=== PATIENT | female | born 2000 | race African-American/Black ===

== ENCOUNTER 2022-06-28 23:46 | Emergency (ER) | payer OTHER ==
[~2022-06-28] VITALS: Ht 160 cm; Wt 74.8 kg
[2022-06-29] MEDS ORDERED: KETOROLAC TROMETHAMINE 60 MG INJ IM ONE ×2 (02:00→02:06)
[2022-06-29 02:24] LABS: HEMATOCRIT 36.4 % (31.2-41.9); MEAN CORPUSCULAR HEMOGLOBIN 26.7 uug (24.7-32.8); MEAN CORPUSCULAR VOLUME 82.1 fL (75.5-95.3); PLATELET COUNT (AUTO) 308 K/uL (179-408)
--- NOTE | 2022-06-29 02:32 | NUR ---
Toradol 60mg IM not given. Patient refused. Per patient, she received Toradol yesterday at [facility] and became itchy. ER MD aware
[2022-06-29 02:45] LABS: MAGNESIUM 1.7 mg/dL (1.8-2.4); POTASSIUM 4.3 mmol/L (3.5-5.1)
--- NOTE | 2022-06-29 02:54 | NUR ---
Urine sample sent to lab
[2022-06-29 03:05] LABS: *BILIRUBIN,URIN NEGATIVE (NEGATIVE); *BLOOD, URINE NEGATIVE (NEGATIVE); *CLARITY,URINE CLEAR (CLEAR); *COLOR,URINE YELLOW (YELLOW); *KETONES,URINE NEGATIVE (NEGATIVE); *UROBILINOGEN,URINE 0.2 E.U./dl (NORMAL); LEUKOCYTE ESTERASE ,URINE NEGATIVE (NEGATIVE); NITRITE, URINE NEGATIVE (NEGATIVE); UGLUCOSE NEGATIVE (NEGATIVE)
[2022-06-29] MEDS ORDERED: HYDROCODONE/APAP 10-325 MG TABLET PO ONE (03:15)
[2022-06-29] MEDS ORDERED: IBUP-1957 PO (03:15)
[2022-06-29] MEDS ORDERED: HYDR-3980 PO (03:15)
--- NOTE | 2022-06-29 03:15 | NUR ---
Given verbal order per Dr. Ball to administer Motrin 600mg PO for pain.
[2022-06-29] MEDS ORDERED: IBUPROFEN 600 MG TABLET ONE (03:16)
[2022-06-29] MEDS ORDERED: IBUPROFEN 600 MG TABLET PO ONE (03:30)
--- NOTE | 2022-06-29 03:30 | NUR ---
Patient discharged to home in stable condition. Written and verbal after care instructions given. Patient verbalizes understanding of instructions. Stressed follow up or return to ER for worsening s/s.
[2022-06-29 03:34] VITALS: BP 124/70
== END 2022-06-29 03:34 | disposition home or self-care (01) ==
LOC: ER 23:46
DX: N83.209 Unspecified ovarian cyst, unspecified side (principal); Z79.1 Long term (current) use of non-steroidal anti-inflammatories (NSAID); Z79.899 Other long term (current) drug therapy
CPT/HCPCS: 36415; 83735; 85025; A4663; J1885